=== PATIENT | male | born 1975 | race Two or more races ===

== ENCOUNTER 2018-07-05 09:43 | Emergency (ER) | payer SELFPAY ==
[~2018-07-05] VITALS: Ht 162.6 cm; Wt 104.3 kg
[~2018-07-05 09:43] MED LIST: CYCL10 PO; HINGED KNEE BRACE TOP; IBUP800 PO; Mobic15 MG PO; Peridex480 ML SS; RXCYCL10 PO; Veetids 500500 MG PO
[2018-07-05] MEDS ORDERED: IBUP800 PO (10:40)
== END 2018-07-05 10:43 | disposition home or self-care (01) ==
LOC: ER 09:43
DX: S60.022A Contusion of left index finger without damage to nail, initial encounter (principal); S60.032A Contusion of left middle finger without damage to nail, initial encounter; W22.8XXA Striking against or struck by other objects, initial encounter
CPT/HCPCS: 73130; 99283-25